=== PATIENT | female | born 2000 | race American Indian/Alaskan Native ===

== ENCOUNTER 2021-03-12 12:06 | Emergency (ER) | payer SELFPAY ==
[2021-03-12] MEDS ORDERED: ONDANSETRON 4 MG/2 ML INJ IV ONE (13:16)
[2021-03-12] MEDS ORDERED: fentaNYL 100 MCG/2 ML INJ IV ONE (13:16)
[2021-03-12] MEDS ORDERED: SODIUM CHLORIDE 0.9% 1000 ML 1,000 ML IV ONE (13:16)
--- NOTE | 2021-03-12 13:22 | Emergency Department Report ---
HPI - General Chief Complaint: Abdominal Pain Time Seen by Provider: 03/12/21 13:08 - HPI HPI: Room 7 The patient is a 20-year-old female present with a chief complaint of of abdominal pain. Patient states yesterday she developed epigastric abdominal pain nausea vomiting diarrhea. Patient also states she developed shortness of breath at rest. Patient denies sick contacts or recent antibiotic usage. Patient states she has received both of her vaccinations for COVID-19 receiving her second vaccination 11/09/2020. Patient states she has been unable to eat because every time she eats she throws it back up. Patient denies history of fever or cough. Patient currently gives her abdominal pain a score of 10/10 ED Past Medical Hx - Past Medical History Previous Medical History?: Yes Hx Asthma: Yes - Surgical History Past Surgical History?: No - Family History Family history: no significant - Social History Smoking Status: Never Smoker Substance Use Type: None (Denies illicit drug use) - Medications Home Medications: Home Medications Medication Instructions Recorded Confirmed Last Taken Type Famotidine [Pepcid] 20 mg PO BID #30 tablet 03/12/21 Unknown Rx Ondansetron [Zofran ODT TAB] 8 mg PO Q8HR #20 tab.rapdis 03/12/21 Unknown Rx traMADoL [Ultram] 50 mg PO Q6HR PRN #10 tablet 03/12/21 Unknown Rx ED Review of Systems ROS: Stated complaint: ABD PAINS/SOB Other details as noted in HPI Constitutional: denies: fever Eyes: denies: eye pain ENT: denies: throat pain Respiratory: shortness of breath. denies: cough Cardiovascular: denies: chest pain Endocrine: no symptoms reported Gastrointestinal: abdominal pain, nausea, vomiting, diarrhea Genitourinary: denies: dysuria Musculoskeletal: denies: back pain Neurological: denies: headache Physical Exam - Physical Exam Vital Signs: Vital Signs 03/12/21 12:39 Temperature 98.4 F Pulse Rate 58 L Respiratory 22 Rate Blood Pressure 136/74 [Right] O2 Sat by Pulse 100 Oximetry Physical Exam: GENERAL: The patient is well-developed well-nourished female lying on stretcher not appearing to be in acute distress. [] HEENT: Normocephalic. Atraumatic. Extraocular motions are intact. Patient has moist mucous membranes. NECK: Supple. Trachea midline CHEST/LUNGS: Clear to auscultation. There is no respiratory distress noted. HEART/CARDIOVASCULAR: Regular. There is no tachycardia. There is no gallop rub or murmur. ABDOMEN: Abdomen is soft, with mild discomfort to palpation in the right upper quadrant and epigastric region. There is no rebound or guarding. Patient has normal bowel sounds. There is no abdominal distention. SKIN: There is no rash. There is no edema. There is no diaphoresis. NEURO: The patient is awake, alert, and oriented. The patient is cooperative. The patient has no focal neurologic deficits. The patient has normal speech. GCS 15 MUSCULOSKELETAL: There is no evidence of acute injury. ED Course Vital Signs 03/12/21 12:39 Temperature 98.4 F Pulse Rate 58 L Respiratory 22 Rate Blood Pressure 136/74 [Right] O2 Sat by Pulse 100 Oximetry - Reevaluation(s) Reevaluation #1: 03/12/21 14:50 Patient states she is feeling improved status post medication. P.o. challenge given 03/12/21 15:03 Patient tolerated p.o. well ED Medical Decision Making - Lab Data Result diagrams: 03/12/21 13:18 03/12/21 13:18 - Differential Diagnosis Gastroenteritis, pancreatitis, cholelithiasis, PE, dehydration Critical care attestation.: If time is entered above; I have spent that time in minutes in the direct care of this critically ill patient, excluding procedure time. ED Disposition Clinical Impression: Gastroenteritis, Acute abdominal pain Disposition: DC-01 TO HOME OR SELFCARE Is pt being admited?: No Does the pt Need Aspirin: No Condition: Stable Instructions: Abdominal Pain (ED), Abdominal Pain, Adult, [id number], Viral Gastroenteritis, Adult, [id number] Additional Instructions: Return to the emergency department should you develop worsening symptoms, inability to tolerate food or liquids, high fever or any other concerns Prescriptions: Famotidine [Pepcid] 20 mg PO BID #30 tablet traMADoL [Ultram] 50 mg PO Q6HR PRN #10 tablet PRN Reason: Pain Ondansetron [Zofran ODT TAB] 8 mg PO Q8HR #20 tab.rapdis Referrals: [facility] [Provider Group] - 3-5 Days MARLI IZQUIERDO MD [Staff Physician] - 3-5 Days (Dr. Izquierdo is a director of accounts payable. Please follow-up with him for further evaluation) Time of Disposition: 15:06
[2021-03-12 13:54] LABS: Hematocrit 42.8 % (30.3-42.9); Hemoglobin 14.5 gm/dl (10.1-14.3); Mean Corpuscular HGB Conc 34 % (30-34); Mean Corpuscular Volume 93 fl (79-97); Platelet Count 345 K/mm3 (140-440); Red Blood Count 4.59 M/mm3 (3.65-5.03); Red Cell Distribution Width 12.8 % (13.2-15.2)
[2021-03-12 14:01] LABS: Bilirubin,Urine NEG (Negative); Blood,Urine NEG (Negative); Color,Urine Yellow (Yellow); Mucus,Urine 1+ /HPF; Protein,Urine <15 mg/dL mg/dL (Negative); Urobilinogen,Urine < 2.0 mg/dL (<2.0)
[2021-03-12 14:29] LABS: Alanine Aminotransferase 15 units/L (7-56); Albumin 4.7 g/dL (3.9-5); Blood Urea Nitrogen 10 mg/dL (7-17); Calcium 9.5 mg/dL (8.4-10.2); Hemolysis Index 13
[2021-03-12 14:33] LABS: BUN/Creatinine Ratio 14
[2021-03-12 15:04] LABS: Total Cells Counted 100
[2021-03-12 15:05] LABS: Platelet Estimate Consistent w Auto; RBC Morphology Normal
[2021-03-12 15:59] VITALS: BP 126/74
== END 2021-03-12 15:59 | disposition home or self-care (01) ==
LOC: ED 12:06
DX: K52.9 Noninfective gastroenteritis and colitis, unspecified (principal); J45.909 Unspecified asthma, uncomplicated; Z98.890 Other specified postprocedural states; Z79.899 Other long term (current) drug therapy
CPT/HCPCS: 36415; 80053; 81001; 83690; 83880; 84703; 85007; 85025; 85379; 96361; 96374; 96375; 99283; J2405; J3010; J7030